=== PATIENT | male | born 1995 | race Caucasian/White ===

== ENCOUNTER 2019-05-26 10:42 | Emergency (ER) | payer SELFPAY ==
[2019-05-26 10:43] VITALS: BP 120/62; PULSE 50; RESP 17; TEMP 36.1; O2SAT 98; BMI 23.0
--- NOTE | 2019-05-26 11:11 | CT_ITS ---
STUDY: CT SOFT TISSUE NECK WITH CONTRAST REASON FOR EXAM: Male, 24 years old. Sore throat x 1 day, dysphagia, right sided throat pain. RADIATION DOSAGE (If Supplied By Facility): CTDIvol = ( 17.34 ) mGy, DLP = ( 593.42 ) mGycm TECHNIQUE: The patient was scanned in a multi-detector CT scanner. High resolution transaxial imaging was performed following intravenous administration of 100mL IV Isovue 300. Sagittal and coronal images were reconstructed. Individualized dose optimization techniques were used for this CT. COMPARISON: None. FINDINGS: Normal bilateral parotid glands. Normal bilateral car unloader spaces. Normal bilateral parapharyngeal spaces. Normal bilateral carotid spaces. Normal bilateral sublingual and submandibular glands and spaces. Normal visualized nasopharynx. Normal retropharyngeal space. Normal perivertebral space. There is an enlargement of the right palatine tonsil. There is a 1 cm hypodensity with multiple foci of air (axial image #81 series 2). There is no discrete peripheral enhancement. There is minimal mass effect on the adjacent parapharyngeal space. There is no stranding of the parapharyngeal space. The visualized tongue, tongue base and oropharynx are normal. There are enlarged right cervical lymph nodes most prominent at the jugulodigastric region measuring up to 3 cm. Normal epiglottis, bilateral vallecula and hypopharynx. The pre-epiglottic and paraglottic adipose spaces are normal. Normal visualized bilateral piriform sinuses, aryepiglottic folds, vocal cords, and arytenoid-cricoid articulations. Normal subglottic trachea. Normal bilateral lobes of the thyroid gland. Normal visualized pulmonary apices. Normal visualized paranasal sinuses. Normal visualized cervical spine. CT/Soft Tissue Neck WITH Contrast IMPRESSION: 1 cm right tonsillar collection. Right neck lymphadenopathy. Electronically Signed: Yvette Mathis MD at 12:09 EDT Tel , Service support ,
--- NOTE | 2019-05-26 11:12 | ED.DCSUM_ITS ---
- ER Visit Summary Date of Service: 05/26/19 Chief Complaint: Sore throat History of Present Illness: The patient is a 24 M presents with a sore throat that is been getting worse over the past 2 to 3 days. Patient states it is gradually gotten worse. Patient states pain is worse on the right side. Joshua machuca describes the pain as sharp. Patient states the pain is worse with breathing and swallowing. Patient admits to subjective fevers. Patient denies any cough. Patient denies any nausea or vomiting. Patient does admit to mild headache. Physical Examination: Vital signs are stable. Patient is afebrile. Patient is in no acute distress. Oral mucosa is pink and moist. Oropharynx is erythematous. There are no exudates. Neck is supple. Trachea is midline. There is tender anterior cervical adenopathy on the right. There is nontender cervical adenopathy on the left. Heart was regular rate and rhythm. Lungs are clear and equal bilaterally. Test Results: CBC and basic metabolic profile were within normal limits. CT scan of the soft tissue neck was obtained. There is a 1 cm hypodensity in the right tonsil. There is no peripheral enhancement. There is lymphadenopathy on the right. Emergency Department Course and Treatment: Patient was given a dose of Augmentin here. Patient was given a dose of Decadron here. Case was discussed with Dr. Mota from ENT. He will follow-up with the patient in the office in 3 days. She was given prescriptions for Augmentin and Decadron. Patient was instructed to return if worse in any way. Patient understood and was agreeable with the plan. All questions were answered. Disposition: Discharge home Impression: Right tonsillar abscess This note was generated with [employer] dictation software. It may contain incorrect words, spelling, and punctuation that were not noted in review of the chart prior to signing ED Disposition - Plan for ED Patient: Disposition: Home or Assisted Living Diagnosis: Tonsillar abscess Instructions: Peritonsillar Abscess Prescriptions: Amox/Clavulanate Tablet [Augmentin Tablet] 875 mg PO Q12H #20 tab Prescription Printed Dexamethasone [Decadron] 6 mg PO DAILY 5 Days #5 tab Prescription Printed Referrals: [facility] Doctor,Out of [Primary Care Provider] - Enrike Ramirez MD [STAFF PHYSICIAN] - 2 Days Additional Instructions: Call Dr. Ramirez's office to schedule appointment for Saturday
[2019-05-26 11:27] VITALS: RESP 18
[2019-05-26 11:27] LABS: Absolute Lymphocyte Count 1.04 X10^3/uL (0.83-4.51); Absolute Neutrophil Count 4.1 X10^3/uL (2.0-7.7); Basophil# 0.02 X10^3/uL; Basophil% 0.3 % (0-1); Eosinophil# 0.07 X10^3/uL; Eosinophils% 1.1 % (0-5); Hematocrit 39.6 % (40-54); Hemoglobin 13.5 g/dL (13.0-16.5); Lymphocyte # 1.04 X10^3/ul (4.0); Lymphocyte % 16.9 % (19-41); Mean Corp Hgb Conc 34.1 g/dL (32-36); Mean Corpuscular Hgb 29.5 pg (27.0-32.0); Mean Corpuscular Volume 86.5 fL (80-94); Mean Platelet Vol. 11.1 fl (6.2-12.0); Monocyte# 0.92 X10^3/uL; Monocyte% 14.9 % (0-10); NRBC Flagged by Analyzer 0 % (0-5); Neutrophil # 4.09 X10^3/uL (2.7-7.7); Neutrophil % 66.5 % (47-70); Platelet Count 134 K/mm3 (150-450); RBC Distribution Width SD 38.3 fl (35.1-43.9); Red Blood Count 4.58 M/mm3 (4.6-6.2); White Blood Count 6.2 K/mm3 (4.4-11.0)
[2019-05-26 11:38] LABS: Anion Gap 5 (5-15); BUN 14 mg/dL (7-18); BUN/Creat Ratio 16.7 RATIO (10-20); Calcium,Total 7.9 mg/dL (8.5-10.1); Chloride 109 mmol/L (98-107); Creatinine, Serum 0.84 mg/dL (0.70-1.30); EST Glomerular Filtration Rate 119 mL/min (>60); Est Glom Filt Rate - Afr Amer 144 mL/min (>60); Estimated Creatinine Clearance 143.55 ml/min; Glucose 113 mg/dL (74-106); Potassium 4.3 mmol/L (3.5-5.1); Sodium Level 141 mmol/L (136-145)
[2019-05-26 13:04] VITALS: BP 118/76; PULSE 79; RESP 18; O2SAT 97
[2019-05-26] MEDS: Amox/Clavulanate 875 MG Tablet PO (13:44)
[2019-05-26] MEDS: dexAMETHasone 10 MG/ML Vial IV (13:44)
[2019-05-26 13:51] VITALS: BP 119/78; PULSE 81; RESP 19; O2SAT 99
== END 2019-05-26 13:59 | disposition home or self-care (01) ==
PROVIDERS: Emergency Provider Emergency Medicine
DX: J36 Peritonsillar abscess (principal); R51 Headache; Z72.0 Tobacco use
CPT/HCPCS: 70491; 80048; 85025; 96374; 99284; Q9967; A4216

== ENCOUNTER 2019-09-22 19:16 | Emergency (ER) | payer SELFPAY ==
[2019-09-22 19:17] VITALS: BP 119/63; PULSE 85; RESP 15; TEMP 36.9; O2SAT 97; BMI 26.1
--- NOTE | 2019-09-22 19:27 | CT_ITS ---
STUDY: CT SOFT TISSUE NECK WITH CONTRAST REASON FOR EXAM: Male, 24 years old. Sore throat x1 month. Worse on the left side RADIATION DOSAGE (If Supplied By Facility): CTDIvol = ( 19.55 ) mGy, DLP = ( 610.21 ) mGycm TECHNIQUE: The patient was scanned in a multi-detector CT scanner. High resolution transaxial imaging was performed following intravenous administration of IV 100mL Isovue-370. Sagittal and coronal images were reconstructed. Individualized dose optimization techniques were used for this CT. COMPARISON: CT neck dated 05/26/2019 FINDINGS: Significant enlargement of the left palatine tonsil as compared to the right. There is a questionable small hypodense central abscess with a punctate focus of air. This abscess collection may measure 1.9 x 0.9 cm. Prominent left reactive lymphadenopathy. Salivary glands are within normal limits. There is mild airway narrowing in the upper airway. Base of the tongue is within normal limits. Normal appearance of the vocal cords. Great vessels of the neck are within normal limits. Unremarkable thyroid inside of a small nonenhancing hypodense nodule in the left measuring 5.2 mm. Upper lung ortiz are clear CT/Soft Tissue Neck WITH Contrast IMPRESSION: Prominent enlargement of the left palatine tonsil as compared with the right with small central hypodense area which could represent a small abscess with punctate focus of air. Reactive left-sided lymphadenopathy. Electronically Signed: Gilberto Cox DO at 20:06 EST Tel , Service support ,
--- NOTE | 2019-09-22 19:29 | ED.DCSUM_ITS ---
- ER Visit Summary Date of Service: 09/22/19 Chief Complaint: Sore throat History of Present Illness: The patient is a 24 M presenting with sore throat. He states his symptoms started approximately one month ago and have been progressively worsening. He says he had similar symptoms in May and was found to have a tonsillar abscess at that time. He was treated with antibiotics. He was supposed to follow-up with learning and development consultant but did not have insurance and did not follow-up. He states he improved and started to worsen again about one month ago. Denies other complaints. Physical Examination: Vitals are stable. Patient is afebrile. Alert no acute distress. HEENT exam pharyngeal erythema, uvula midline Neck is supple. No meningismus Lungs are clear and equal bilaterally. Heart is regular rate and rhythm. Abdomen is soft nontender nondistended. Extremities are unremarkable. Skin is warm and dry. No rash No focal neurologic deficit. Remainder of exam is unremarkable. Emergency Department Course and Treatment: Patient was given Decadron. CT soft tissue neck shows prominent enlargement of the left palatine tonsil as compared with the right with small central hypodense area which could represent a small abscess with punctate focus of air. Reactive left-sided lymphadenopathy. Rapid strep is positive. Patient was given Augmentin. Discussed with Dr. Webstre and patient will follow-up in the office. Advised return to the ED for worsening complaints. Disposition: Discharge home Impression: Pharyngitis, tonsillar abscess This note was generated with [employer] dictation software. It may contain incorrect words, spelling, and punctuation that were not noted in review of the chart prior to signing ED Disposition - Plan for ED Patient: Instructions: Peritonsillar Abscess, PHARYNGITIS, Strep (Confirmed) Prescriptions: Amox/Clavulanate Tablet [Augmentin Tablet] 875 mg PO Q12H #20 tab Prescription Printed Referrals: Enrike Ramirez MD [STAFF PHYSICIAN] - [facility] Doctor,Out of [Primary Care Provider] -
[2019-09-22] MEDS: dexAMETHasone 4 MG Tablet PO (20:13)
--- NOTE | 2019-09-22 20:31 | ED.RN ---
DR LEAH FRENCH FOR DR BRUNO
--- NOTE | 2019-09-22 20:35 | DCINST.ED_ITS ---
ED Disposition - Plan for ED Patient: Instructions: PHARYNGITIS, Strep (Confirmed), Peritonsillar Abscess Prescriptions: Amox/Clavulanate Tablet [Augmentin Tablet] 875 mg PO Q12H #20 tablet Referrals: [facility] Doctor,Out of [Primary Care Provider] - Enrike Ramirez MD [STAFF PHYSICIAN] -
[2019-09-22] MEDS: Amox/Clavulanate 875 MG Tablet PO (20:45)
[2019-09-22 20:50] VITALS: PULSE 66; RESP 17; O2SAT 97
== END 2019-09-22 20:52 | disposition home or self-care (01) ==
PROVIDERS: Emergency Provider Emergency Medicine
DX: J36 Peritonsillar abscess (principal)
CPT/HCPCS: 70491; 87880; 99283; Q9967; A4216